=== PATIENT | male | born 1970 | race Caucasian/White ===

== ENCOUNTER → 2017-03-31 | Outpatient (CLI) | payer BC ==
[~2017-03-31] MED LIST: ATORVASTATIN CA10 M1 PO; KEFLEX 500MG.500 MG PO; METOPROLOL SUCC50 M4 PO; METOPROLOL50 MG PO; PREDNISONE 20MG20 MG PO; TESSALON PERLE100 M1 PO; TRAMADOL 50MG T1 PAK PO; VICODIN 5/500 T1 TAB PO; ZITHROMAX Z PA250 MG PO
[2017-03-31 08:57] LABS: HEMOGLOBIN 17.3 g/dL (14.1-18.0); LYMPH # 2.4 K/mm3 (0.7-4.5); LYMPH % 33.3 % (10-50)
[2017-03-31 10:20] LABS: BUN 15 mg/dL (7-18)
[2017-03-31 10:31] LABS: GFR (ESTIMATED) 80 ML/MIN (>60)
== END ==
LOC: LAB 08:47
PROVIDERS: Registered Nurse Psychiatric/Mental Health
DX: Z79.899 Other long term (current) drug therapy (principal); Z13.220 Encounter for screening for lipoid disorders

== ENCOUNTER → 2017-06-22 | Outpatient (CLI) | payer BC ==
--- NOTE | 2017-06-22 15:35 | RADIOLOGY REPORT PS360 ---
MRI-BRAIN W/O HISTORY: Headache, hemicrania, left-sided head and neck pain, left ear draining PAIN IN HEAD, HEMICRANIA, NECK PAIN, CERVICALGIA ORDERING PHYSICIAN: ESTEPHANIA PERDUE APRN PATIENT AGE: 47 years COMPARISON: None TECHNIQUE: Standard multiplanar multiecho sequences are performed without contrast. FINDINGS: No midline shift, mass effect, intracranial hemorrhage, hydrocephalus, or acute infarction is evident. No evidence of tonsillar ectopia. The pituitary and optic chiasm and corpus callosum are unremarkable. Normal white matter differentiation with no abnormal white matter signal intensity evident. Small cystic area is present in the right insular region and may be due to a small choroidal fissure cyst as an incidental finding at 5 x 7 mm. The cerebellopontine angles, cerebellum, and brainstem are unremarkable. No mastoid effusion or sinus air-fluid level. The hippocampal gyri are unremarkable. There is some minimal asymmetry in the temporal horns of the lateral ventricles the left being slightly larger than the right of questionable clinical significance. IMPRESSION: Essentially negative MRI of the brain without contrast.
--- NOTE | 2017-06-22 15:41 | RADIOLOGY REPORT PS360 ---
MRI-C-SPINE W/O HISTORY: Neck pain, cervicalgia, left-sided neck pain radiating into the left shoulder and left arm with tingling PAIN IN HEAD, HEMICRANIA, NECK PAIN, CERVICALGIA ORDERING PHYSICIAN: ESTEPHANIA PERDUE APRN PATIENT AGE: 47 years COMPARISON: None TECHNIQUE: Standard multiplanar multiecho sequences are performed without contrast. 3-D MIP and myelographic images are also rendered and reviewed FINDINGS: There is slight reversal cervical lordosis which may be due to patient positioning or muscle spasm. There is normal alignment. The craniocervical junction has an unremarkable appearance. C2-C3 and C3-C4 have an unremarkable appearance. C4-C5: There is a small to medium sized left paracentral disc herniation with minimal superior extrusion. This is causing some compression upon the left aspect of the cervical cord and mild flattening of the cord on the left. This is also causing left lateral recess and foraminal narrowing. C5-C6: Mild degenerative disc disease with bulging disc and endplate hypertrophic change. C6-C7: Unremarkable. IMPRESSION: 1. Small medium-sized left paracentral disc herniation with mild superior extrusion at C4-C5 causing compression upon the left aspect of the cord and mild flattening of the cord at this level. 2. Degenerative disc disease C5-C6 with bulging disc IMPRESSION:
== END ==
LOC: RAD 13:41
DX: G44.51 Hemicrania continua (principal); M54.2 Cervicalgia

== ENCOUNTER → 2017-11-02 | Outpatient (CLI) | payer BC ==
--- NOTE | 2017-11-02 20:23 | RADIOLOGY REPORT PS360 ---
CERVICAL SPINE-2 TO 3 VIEWS Ordering Physician: MARK HANSEN Patient Age: 47 years: Male HISTORY: CERVICAL DISC HERNIATION TECHNIQUE: AP and lateral cervical spine COMPARISON :MR C-spine 06/22/2017 FINDINGS Patient has undergone discectomy with anterior fusion C4/5. Anteriorly placed metallic plate secured by 2 screws entering anteriorly into C4 and C5 vertebra. Also Disc spacer device placed at C4/5. Normal alignment at C4/5. There is disc space narrowing and cervical spondylosis at C5-C6 with mild posterior hypertrophic ridging evident on the lateral view this matches the previous appearance on June 2017 MRI. Mild anterior marginal osteophytes at C5-C6 noted as well. The other disc spaces C-spine are well-maintained. . The patient does have persistent generous prevertebral soft tissues which may reflect the interval or recent surgery. This requires correlation. I do not have time interval. From surgery. The patient fever, mildly is or other symptoms this may require further evaluation. IMPRESSION: Anterior discectomy and fusion at C4/5 -which has been performed since 06/22/2017 MR Degenerative disc space narrowing is cervical spondylosis C5-C6 again noted similar to previous MR study. Generous prevertebral soft tissues instantly noted C-spine may reflect the residual from surgery. This observation requires clinical correlation
== END ==
LOC: RAD 10:45
DX: M50.20 Other cervical disc displacement, unspecified cervical region (principal)